=== PATIENT | male | born 1935 | race Caucasian/White ===

== ENCOUNTER 2017-01-11 04:36 | Inpatient (IN) | payer MEDICARE, OTHER ==
[~2017-01-11] VITALS: Ht 172.7 cm; Wt 62.3 kg
--- NOTE | 2017-01-11 19:08 | ER ---
ADMIT: 01/11/2017 RM/LOC: 416 [facility] MR#: [id number] 26[address] [facility] [address] [place], [place] [address] CARMELO CONN [address] [place], [place] [id number] Emergency Room Report SEX: M AGE: 81 : 1935 DATE: 01/11/2017 HISTORY OF PRESENT ILLNESS: The patient is an 81-year-old male with a past medical history of CHF and atrial fibrillation, came to the ER with chief complaint of cough and congested and difficulty breathing and some shortness of breath for 1 day. The patient states he had some mild shortness of breath, but it increased recently. The patient denies any chest pain or swelling in the lower extremities. The patient states he does not know the name of his medications, but he is compliant with them. PHYSICAL EXAMINATION: VITAL SIGNS: The patient had O2 saturation of 81% on room air, the patient was also tachypneic in 24 breaths per minute, the patient was put on nasal O2, 2 L with increased the O2 saturation in low 90s. The patient had heart rate of 80s, and the monitor was irregular, atrial fibrillation. HEAD AND NECK: Pupils are 3 mm, reactive to light bilaterally, trachea is midline, in the pharynx, there is no erythema or exudate. LUNGS: Bilateral, there were some wheezing without any rhonchi and received breathing treatment for that reason. HEART: Irregularly irregular without any murmurs. ABDOMEN: Soft. EXTREMITIES: Lower extremities, there is no swelling. There is no tenderness in lower extremity too. DIAGNOSTIC DATA: Chest x-ray showed left pleural effusion, very consistent with previous chest x-ray from a few years back. I did not see any infiltration in chest x-ray. WBC was 13 with hemoglobin of 9.8 and platelet of 377,000. Troponin was mildly elevated at 0.072, this could be demand ischemia versus acute coronary syndrome. BNP was 3700 comparing with the previous BNP in the last few years, which was in the rate of 11,000. Lactate was 1.4. The patient was negative for influenza A and B antigen. The patient's EKG was atrial fibrillation with a rate of 80s. The patient was admitted to Medicine for hypoxia, respiratory distress, rule out acute coronary syndrome. Juan Carlos Meade MD/ marcy JOB #: [id number] CC: Sisi Corona MD, Attending Physician Sisi Corona MD, Family Physician
[2017-01-15] MEDS ORDERED: LASIX DPS20 MG PO (20:15)
[2017-01-15] MEDS ORDERED: COUMADIN2.5 MG PO (20:16)
[2017-01-15] MEDS ORDERED: ZITHROMAX250 MG PO (20:16)
[2017-01-15] MEDS ORDERED: COREG3.125 MG PO (20:16)
[2017-01-15] MEDS ORDERED: ASA CHILDREN'S81 MG PO (20:16)
[2017-01-15] MEDS ORDERED: MIRALAX PACKET17 GM PO (20:16)
[2017-01-15] MEDS ORDERED: FLOMAX DPS0.4 MG PO (20:16)
[2017-01-15] MEDS ORDERED: DUONEB DPS3 ML IH (20:17)
[2017-01-15] MEDS ORDERED: CEFTIN DPS500 MG PO (20:17)
--- NOTE | 2017-01-31 23:26 | DS ---
ADMIT: 01/11/2017 RM/LOC: 416 [facility] MR#: [id number] [address] [facility] [address] [place], [place] [address] CARMELO CONN [address] [place], [place] [address] Discharge Summary SEX: M AGE: 81 : 1935 ADMISSION DATE: 01/11/2017 DISCHARGE DATE: 01/15/2017 DIAGNOSES: 1. Acute on chronic respiratory failure. 2. COPD (chronic obstructive pulmonary disease) exacerbation. 3. Elevated INR (international normalized ratio). 4. Hypoxemia. 5. Elevated troponin-demand ischemia. 6. Left pleural effusion-small. 7. Tobacco use. 8. Atrial fibrillation. 9. Constipation. PROCEDURES: None. CONSULTS: None. REASON FOR HOSPITALIZATION: Respiratory failure. See dictated H and P. LABORATORY AND X-RAY DATA: White blood count 13 down to 10.9, hemoglobin 9.8 and 8.8, platelet count 383. INR 4.95 down to 2.06. Urine unremarkable. Sodium 142, potassium 3.5 up to 4.1, chloride 104, CO2 31, BUN 23, glucose 80, creatinine 0.6, calcium 7.6, lactic acid 1.4. CPK 29, troponin 0.052, magnesium 2, proBNP 3703, influenza A and B were negative, blood cultures were negative. Chest x-ray with emphysema and left pleural effusion and scarring. Overnight oximetry on 01/13/2017 went down to 81% on room air. 1 L was used to maintain sats above 88% at least. COURSE IN THE HOSPITAL: Carmelo was admitted through the emergency room with respiratory failure. He was given Rocephin and Zithromax as well as DuoNebs. Lasix IV was given. Serial labs were drawn. INR was noted to be elevated; therefore, his Coumadin was held. He was felt to have COPD exacerbation with hypoxemia and sats down to 80%. He was given IV Lasix for his left pleural effusion that was chronic and had seemed to worsen just a little bit. By the following day, he was feeling a little bit better. Lasix was decreased. His activity was increased. He was continued on his antibiotics. It was discussed the possibility of going to a facility for rehab, and he was pretty adamant about returning home. We felt he could add in some assistance at home and that would be the way he would want to go. His hypoxemia and never completely resolved. It was felt he probably needed to go home on oxygen. Nocturnal oximetry was performed and the results were as above. He will be going home on oxygen at least at night. He was then ambulated on room air down and was found to be down to 86%. He was encouraged to wear his oxygen during the day also. This was set up through a vendor. He continued to improve and by 01/15/2017 was felt well enough to return home. He will be dismissed with Home Health Care with close following. DISCHARGE MEDICATIONS: ADMIT: 01/11/2017 RM/LOC: 416 [facility] MR#: [id number] [address] [address] CARMELO CONN [address] [place] [address] Discharge Summary SEX: M AGE: 81 : 1935 1. O2 at 2 L with [facility]. 2. Aspirin 81 mg daily. 3. Coreg 3.125 b.i.d. 4. Coumadin 2.5 mg daily. 5. Flomax 0.4 daily. 6. MiraLAX daily p.r.n. 7. Zithromax 250 daily for 2 days. 8. DuoNebs q.i.d. 9. Ceftin 250 b.i.d. for 6 days. 10.Lasix 20 mg daily. He will have an appointment with me in 10-14 days. Overall prognosis is poor. Time spent 45 minutes. Sisi Corona MD/ estiven JOB #: [id number] CC: Sisi Corona MD, Attending Physician Sisi Corona MD, Family Physician
--- NOTE | 2017-03-09 21:19 | HP ---
ADMIT: 01/11/2017 RM/LOC: 416 [facility] MR#: [id number] [address] [facility] [address] [place] [id number] CARMELO CONN [address] [place], [place] [address] History and Physical SEX: M AGE: 81 : 1935 DATE OF SERVICE: CHIEF COMPLAINT: Shortness of breath and hypoxemia. HISTORY OF PRESENT ILLNESS: Carmelo is an 81-year-old white male, living alone, who developed progressive shortness of breath. He brought himself to the hospital, where he was escorted to the emergency room and found to have profound hypoxemia with saturation levels in the 80% range. He has had progressive shortness of breath over the last day. Increased to the point that he knew he needed assistance. In the emergency room, he was noted to have an O2 saturation of 81% and tachypneic at 24 breaths per minute. He was in atrial fibrillation, which is not a new issue. He was placed on oxygen which improved issues. Chest x-ray showed pleural effusion. He was checked for influenza which was negative. He was admitted for aggressive treatment since he does not have any pulmonary reserve. PAST MEDICAL HISTORY: Paroxysmal atrial fibrillation-cardioversion on 02/03/2013; recurrent atrial fibrillation flutter 04/06, status post tricuspid valve; isthmus ablation 05/29/2013; Holter 12/04/2013 with normal sinus rhythm and first-degree AV block; DANII with cardioversion on 09/06/2015; acute renal failure 02/04-resolved. Cardiomyopathy-echo on 02/01/2013 with EF 20% to 25% and global hypokinesis; DANII on 02/02/2013 with EF 20% to 25%; septal dyskinesia with intraatrial shunt; cardiac cath on 02/03/2013 with 1st diagonal 80%; echo on 06/28/2013 with EF 45%. Bilateral cataracts-left on 04/17/2014 and right 06/05/2014; COPD; systolic heart failure, chronic on 02/04. Anticoagulated on Coumadin. Healthcare maintenance-echo on 08/30/2015; DANII on 09/06/2015 with EF 45% to 50%, cardiac cath on 02/02/2013; ultrasound of the abdomen on 02/03/2013; ultrasound of the kidney on 02/04/2015; Holter on 01/18/2015, exam 07/30/2015. Hypoxemia. Living well on file per DNR/DNI. Patent foramina ovale-echo on 06/28/2013 with EF 45%, echo 08/30/2015 with EF 50% to 55%, paradoxical septal wall motion and in atrial fibrillation with PFO, ?New. Rash which is plaque-like on his back, appears to be psoriasis. Ablation status post tricuspid valve isthmus ablation on 05/29/2013. Sensorineural hearing loss bilateral by Audiology on 06/02/2013. Single vessel heart disease with echo on 02/01/2013 and EF 20% to 25% with global hypokinesis, DANII on 02/02/2013, cath on 02/03/2013 with 1st diagonal 80%. Urine retention. Elevated white count-monitor. MEDICATION: On admission, listed as: 1. Lasix 20 mg daily. 2. Tamsulosin 0.4 daily. 3. Carvedilol 3.125 b.i.d. 4. Warfarin 5 mg daily. 5. Aspirin 81 mg daily. ALLERGIES: NONE. SOCIAL HISTORY: He smokes. Does drink alcohol up to 2 scotches and Ball in the afternoon. He is , estranged from his daughter. Good friend, ADMIT: 01/11/2017 RM/LOC: 416 [facility] MR#: [id number] [id number] [facility] [address] [place], [place] [address] CARMELO CONN [address] [place] [address] History and Physical SEX: M AGE: 81 : 1935 Marisol does look after him. He is also close to his son, his ex son-in-law, and his grandson, Eliel. FAMILY HISTORY: Mother with breast cancer. Brother with hypertension and Parkinson disease. One brother with an unexplained . REVIEW OF SYSTEMS: Very short of breath and tired today. Feels better with the oxygen. PHYSICAL EXAMINATION: VITAL SIGNS: Vitals per nursing. GENERAL: This is a well-developed, well-nourished, white male, who is a little tachypneic at rest. SKIN: Warm and dry. HEENT: Normocephalic, atraumatic. Anicteric. Oxygen in place. NECK: Supple. LUNGS: Diminished with expiratory wheezes and prolonged expiration. Basically diminished in both bases. CARDIOVASCULAR: Irregularly irregular and distant. ABDOMEN: Soft. AND RECTAL: Deferred. EXTREMITIES: With trace to 1+ edema. IMPRESSION: 1. Chronic obstructive pulmonary disease exacerbation. 2. Fnaqf-hi-[id number] respiratory failure. 3. Left pleural effusion. 4. Tobacco abuse. 5. Elevated troponin-suspect demand ischemia. DISCUSSION: I really do not think that the troponin elevation is cardiac in nature. We will go ahead and give him Lasix for IV fluids just to see if that helps the situation. Also place him on Rocephin and Zithromax in case it is infectious. We will see how he does in the next 24 to 48 hours. PLAN: See chart for orders. Sisi Corona MD/ reynaldol JOB #: [id number] CC: Sisi Corona MD, Attending Physician Sisi Corona MD, Family Physician
== END 2017-01-15 13:11 | disposition home health service (06) | DRG 190 ==
LOC: ER 04:36 → 4PCU 07:20
PROVIDERS: ADMIT Internal Medicine
DX: J44.1 Chronic obstructive pulmonary disease with (acute) exacerbation (principal); J96.21 Acute and chronic respiratory failure with hypoxia; I24.8 Other forms of acute ischemic heart disease; H91.90 Unspecified hearing loss, unspecified ear; R06.82 Tachypnea, not elsewhere classified; F17.200 Nicotine dependence, unspecified, uncomplicated; I48.91 Unspecified atrial fibrillation; D64.9 Anemia, unspecified; K59.00 Constipation, unspecified; Z79.01 Long term (current) use of anticoagulants; Z79.82 Long term (current) use of aspirin